=== PATIENT | male | born 1990 | race Caucasian/White ===

== ENCOUNTER 2016-07-09 09:10 | Emergency (ER) | payer SELFPAY ==
[~2016-07-09] VITALS: Wt 64.0 kg
[~2016-07-09 09:10] MED LIST: ACET500C5 PO; ALPR0.25 PO; CYCL-319 PO; IBUP-1542 PO
[2016-07-09] MEDS ORDERED: DIPHENHYDRAMINE 25 MG CAP PO ONE (10:00)
[2016-07-09] MEDS ORDERED: TETRACAINE 0.5% 15 ML OPH BOTH EYES ONE (10:00)
[2016-07-09] MEDS ORDERED: SOD CHLORIDE 0.9% 1,000 ML IV ONE (10:00)
[2016-07-09] MEDS ORDERED: FLUORESCEIN STRIP BOTH EYES ONE (10:00)
[2016-07-09 10:47] LABS: BASOPHILS % 0.4 % (0.0-2.0); EOSINOPHILS # 0.2 10^3/ul (0.0-0.5); EOSINOPHILS % 3.3 % (0.0-7.0); HEMATOCRIT 49.9 % (42.0-52.0); HEMOGLOBIN 17.4 g/dl (14.0-18.0); LYMPHOCYTES # 2.1 10^3/ul (0.8-2.9); LYMPHOCYTES % 28.8 % (15.0-51.0); MEAN CORPUSCULAR HGB CONC 34.9 g/dl (32.0-37.0); MEAN CORPUSCULAR VOLUME 91.9 fl (82.0-101.0); MEAN PLATELET VOLUME 9.6 fl (7.4-10.4); MONOCYTE # 0.4 10^3/ul (0.3-0.9); MONOCYTES % 5.5 % (0.0-11.0); NEUTROPHIL # 4.4 10^3/ul (1.6-7.5); PLATELET COUNT 168 10^3/UL (140-440); RED BLOOD COUNT 5.44 10^6/ul (4.70-6.10); RED CELL DISTRIBUTION WIDTH 12.6 % (11.5-14.5); UNCORRECTED WBC 7.1 10^3/ul (4.8-10.8); WHITE BLOOD COUNT 7.1 10^3/ul (4.8-10.8)
[2016-07-09 10:49] LABS: CONDITION 1
[2016-07-09 10:55] LABS: ALBUMIN 4.5 g/dl (3.3-4.9)
[2016-07-09 10:56] LABS: POTASSIUM 3.6 mmol/L (3.5-5.1)
[2016-07-09 10:58] LABS: ALBUMIN/GLOBULIN RATIO 1.21; BILIRUBIN,INDIRECT 0.5 mg/dl (0-1.1); BILIRUBIN,TOTAL 0.5 mg/dl (0.2-1.3); CREATININE 0.75 mg/dl (0.61-1.24); TOTAL PROTEIN 8.2 g/dl (6.1-8.1)
[2016-07-09 10:59] LABS: CALCIUM 9.7 mg/dl (8.4-10.2)
[2016-07-09] MEDS ORDERED: LIDOCAINE/MYLANTA 40 ML BTL PO ONE (11:30)
--- NOTE | 2016-07-09 12:21 | RADRPT ---
PROCEDURE: CT Brain without contrast. CLINICAL INDICATION: Dizziness, weakness and blurred vision TECHNIQUE: Axial imaging was obtained through the head without intravenous contrast administration u sing a multi-slice CT scanner. Standard CT scan of the head without contrast protocols were perform ed. The CTDIvol is 44.63 mGy and the DLP is 720.23 mGycm. COMPARISON: CT scan of the head 05/20/2015 FINDINGS: The ventricular system and peripheral CSF spaces are unremarkable. Negative for intracranial masses hemorrhages or midline shift. The martin-white matter interfaces unremarkable. The bones and calvar ium are intact. Paranasal sinuses visualized are unremarkable. The mastoids are unremarkable. IMPRESSION: No evidence of intracranial masses hemorrhages or midline shift. RPTAT:AAJJ Physician Brian Date Time Electronically viewed and signed by Physician Brian on 07/09/2016 12:21 BM/
[2016-07-09] MEDS ORDERED: GENT5DRO28 BOTH EYES (12:52)
[2016-07-09] MEDS ORDERED: MECL12.574 PO (12:53)
[2016-07-09 13:07] VITALS: BP 141/72; PULSE 68; RESP 17
--- NOTE | 2016-07-09 15:26 | ERD ---
ER Documentation Chief Complaint Date/Time DATE: 07/09/16 TIME: 15:21 Chief Complaint dizziness and gen weakness for 2 days. no neuro deficit HPI 26-year-old male with no significant past medical history presents the ED complaining of weakness, dizziness, blurred vision, a blood patch on his pillow upon awakening this morning. States that he is unsure where the blood was coming from. States that the symptoms have been occurring for the last 2 days. States that he does not wear any glasses. Reports that his dizziness it is sometimes due to positional movements. Denies any cough, rhinorrhea, fever, chills, normal pain, chest pain, shortness of breath, wheezing, numbness or tingling, eye pain. States that he did not get anything in his eyes however describes the feeling as a burning sensation of his eyes. slps used at this time. ROS All systems reviewed and are negative except as per history of present illness. Medications Home Meds Active Scripts Meclizine Hcl* (Antivert*) 12.5 Mg Tab, 12.5 MG PO Q6H Y for DIZZINESS, #20 TAB Prov:SHAYLA VOGT PA-C 07/09/16 Gentamicin Sulfate* (Gentamicin Sulfate* Ophth) 0.3% - 5 Ml Drops, 2 DROP BOTH EYES Q4, #1 EA Prov:SHAYLA VOGT PA-C 07/09/16 Alprazolam* (Xanax*) 0.25 Mg Tablet, 0.25 MG PO Q8H Y for ANXIETY, #10 TAB Prov:MARILYN AGUIRRE NP 07/17/15 Acetaminophen* (Tylophen*) 500 Mg Capsule, 1 CAP PO Q6 Y for PAIN AND OR ELEVATED TEMP, #30 CAP Prov:DEBI HERNÁNDEZ PA-C 05/20/15 Cyclobenzaprine Hcl* (Cyclobenzaprine Hcl*) 10 Mg Tablet, 10 MG PO TID, #15 TAB Prov:DEBI HERNÁNDEZ PA-C 05/20/15 Ibuprofen* (Motrin*) 600 Mg Tab, 600 MG PO Q6H Y for PAIN AND OR ELEVATED TEMP, #30 Prov:DEBI HERNÁNDEZ PA-C 05/20/15 Allergies Allergies: Coded Allergies: No Known Allergy (Unverified , 05/20/15) PMhx/Soc Medical and Surgical Hx: pt denies Medical Hx History of Surgery: Yes (broken nose repair 3 yrs ago) Anesthesia Reaction: No Hx Neurological Disorder: No Hx Respiratory Disorders: No Hx Cardiac Disorders: No Hx Psychiatric Problems: No Hx Miscellaneous Medical Probl: No Hx Alcohol Use: Yes (1 x per wk) Hx Substance Use: No Hx Tobacco Use: No Smoking Status: Never smoker Physical Exam Vitals Temp 98.4 Pulse 64 SBP 140 DBP 81 Resp 20 O2 Sat 100 Pain Intensity 0 Physical Exam Const: [id number], well-nourished. In no acute distress. Head: Atraumatic, normocephalic Eyes: Normal Conjunctiva without injection. Red reflex appreciated bilaterally. No purulent discharge. PERRLA. EOMI. No periorbital edema. ENT: Normal external ear. Ear canal without erythema. Tympanic membrane pearly martin without effusion or bulging. Nasal canal clear with normal turbinates. Moist oropharynx without tonsillar exudates. Bleeding inflamed anterior maxillary gums with teeth decay. Non-erythematous pharynx. Uvula midline. No drooling. No trismus. Neck: No cervical midline tenderness. Full range of motion. No meningismus. No cervical lymphadenopathy. No JVD. Resp: Clear to auscultation bilaterally. No wheezing, rhonchi, rales, or crackles. No accessory muscle use. No retractions. Cardio: Regular rate and rhythm. No murmurs, rubs or gallops. Abd: Soft, non tender, non distended. Normal bowel sounds. No palpable masses. No rebound tenderness. No guarding. Negative McBurney's Point. Negative Negro's Sign. Skin: Normal skin turgor. No petechiae or rashes Back: No midline tenderness. No CVA tenderness. Ext: No cyanosis, or edema. Distal pulses intact bilaterally. Neur: Awake and alert. Normal gait. Normal coordination. Cranial Nerves II- VII intact. Normal finger to nose. Muscle strength 5/5. Sensation intact. Psych: Normal Mood and Affect Results 24 hrs Laboratory Tests Test 07/09/16 10:20 Alanine Aminotransferase (ALT/SGPT) 28IU/L Albumin 4.5g/dl Albumin/Globulin Ratio 1.21 Alkaline Phosphatase 90IU/L Anion Gap 19 Aspartate Amino Transf (AST/SGOT) 26IU/L Basophils # 0.010^3/ul Basophils % 0.4% Blood Urea Nitrogen 9mg/dl Calcium Level 9.7mg/dl Carbon Dioxide Level 31mmol/L Chloride Level 101mmol/L Creatinine 0.75mg/dl Direct Bilirubin 0.00mg/dl Eosinophils # 0.210^3/ul Eosinophils % 3.3% Globulin 3.70g/dl Glucose Level 96mg/dl Hematocrit 49.9% Hemoglobin 17.4g/dl Indirect Bilirubin 0.5mg/dl Lipase 51U/L Lymphocytes # 2.110^3/ul Lymphocytes % 28.8% Mean Corpuscular Hemoglobin 32.0pg Mean Corpuscular Hemoglobin Concent 34.9g/dl Mean Corpuscular Volume 91.9fl Mean Platelet Volume 9.6fl Monocytes # 0.410^3/ul Monocytes % 5.5% Neutrophils # 4.410^3/ul Neutrophils % 62.0% Nucleated Red Blood Cells # 0.010^3/ul Nucleated Red Blood Cells % 0.0/100WBC Platelet Count 43278^3/UL Potassium Level 3.6mmol/L Red Blood Count 5.4410^6/ul Red Cell Distribution Width 12.6% Sodium Level 147mmol/L Total Bilirubin 0.5mg/dl Total Protein 8.2g/dl White Blood Count 7.110^3/ul Current Medications Medications (Trade) Dose Ordered Sig/Blanca Route PRN Reason Start Time Stop Time Status Last Admin Dose Admin Tetracaine HCl (Tetracaine 0.5% Oph) 1 drop ONCE ONCE BOTH EYES 07/09/16 10:00 07/09/16 10:01 DC 07/09/16 10:08 Diphenhydramine HCl (Benadryl) 25 mg ONCE ONCE PO 07/09/16 10:00 07/09/16 10:01 DC Fluorescein Sodium 1 strip 1 strip ONCE ONCE BOTH EYES 07/09/16 10:00 07/09/16 10:01 DC 07/09/16 10:09 Sodium Chloride (NS) 1,000 ml @ 1,000 mls/hr Q1H ONCE IV 07/09/16 10:00 07/09/16 10:59 DC 07/09/16 10:09 Miscellaneous Medication (Gi Cocktail (2)) 40 ml ONCE ONCE PO 07/09/16 11:30 07/09/16 11:31 DC 07/09/16 11:25 Procedures/MDM This is a 26-year-old male with no significant past medical history presents the ED complaining of weakness, dizziness, blurred vision, a patch of dry blood on his pillow that he found earlier this morning. Patient is afebrile nontoxic appearing. A visual acuity, CT of the brain without contrast, CBC, CMP, lipase , this was ordered to further evaluate patient. The CT of the brain without contrast was discussed with patient at this time. States that he would like to obtain one due to the new in onset of blurred vision associated with his weakness. Patient was treated with normal saline with improvement of his symptoms. Eye Exam w/ Wood's lamp: Visual Acuity: [L 20/50 R 20/50 Bilateral 20/40] Visual Pate: Intact in all four quadrants bilaterally Lac ducts/glands: No swelling Lids w/ evertion: Normal, no foreign body Conj/Kenvil: Clear, negative Beverly's, slight Fluorecin uptake of the left lateral aspect of patient's conjunctiva - conjunctival abrasion Anterior Chamber: Clear CBC: No leukocytosis. No e/o of systemic infection. No e/o anemia. CMP: No e/o severe acidosis, alkalosis, renal failure, diabetic ketoacidosis, liver disease Lipase within normal limits. Urine: No leukocyte esterase, no nitrites, no hematuria. EKG reviewed and interpreted by Dr. Sinclair Rate/Rhythm: [73 bpm, Normal Sinus Rhythm] No ectopy, no ST elevations, normal axis. QRS, ST, T-waves: [No changes consistent w/ acute ischemia] Impression: [No evidence of ischemia or arrhythmia] PROCEDURE: CT Brain without contrast. CLINICAL INDICATION: Dizziness, weakness and blurred vision TECHNIQUE: Axial imaging was obtained through the head without intravenous contrast administration using a multi-slice CT scanner. Standard CT scan of the head without contrast protocols were performed. The CTDIvol is 44.63 mGy and the DLP is 720.23 mGycm. COMPARISON: CT scan of the head 05/20/2015 FINDINGS: The ventricular system and peripheral CSF spaces are unremarkable. Negative for intracranial masses hemorrhages or midline shift. The martin-white matter interfaces unremarkable. The bones and calvarium are intact. Paranasal sinuses visualized are unremarkable. The mastoids are unremarkable. IMPRESSION: No evidence of intracranial masses hemorrhages or midline shift. Since patient reports that it sometimes is positional, dizziness could be due to possible vertigo. A trial course of Meclizine will be given to patient. Low suspicion for bleeding disorders, anemia, hypoglycemia, acute myocardial infarction, pneumothorax, pneumonia, cardiac tamponade, pulmonary embolism, AAA , aortic dissection, Boerhaave's syndrome, cardiac dysrhythmias, meningitis, intracranial bleed, subarachnoid hemorrhage, epidural hematoma, subdural hematoma, seizure, stroke, TIA or other emergent conditions. Patient could have possible conjunctival abrasion and outpatient antibiotics will be given to patient. Low suspicion for ruptured globe, periorbital cellulitis, acute angle glaucoma, retroorbital hemorrhage, or other emergent conditions. Patient instructed to follow up with hot water heater installer within 24 hours. This case was discussed with my supervising physician, Dr. Sinclair who agreed with the management and discharge plan. Discharge medications: Meclizine, Gentamicin Follow up with primary care physician in 1-2 days. Instructed patient to return to the ED sooner for any worsening symptoms. Patient's questions were answered. Patient understood and agreed with discharge plan. Patient discharged stable. Departure Diagnosis: Primary Impression: Multiple complaints Additional Impressions: Dizziness Blurred vision Gingivitis Condition: Stable Patient Instructions: Blurred Vision, Corneal Abrasion, Dizziness, Unk Cause, Gingivitis (Child) Referrals: [facility] Usted se millan hecho un examen mdico de control que le indica que no est en zuleyma condicin que requiera tratamiento urgente en el Departamento de Emergencia. Un estudio ms profundo y el tratamiento de mar condicin pueden esperar sin ningn riesgo hasta que usted sea atendida/o en el consultorio de mar mdico o zuleyma cl selina. Es responsabilidad suya arreglar zuleyma claudia para el seguimiento del jorge. MANEJO DE CONDICIONES NO URGENTES EN EL FUTURO 1) Si usted tiene un mdico de atencin primaria: Usted debera llamar a mar mdico de atencin primaria antes de venir al departamento de emergencia. Despus de las horas de consultorio, mar doctor o mar asociado/a est disponible por telfono. El mdico o enfermero de rudolph en el servicio telefnico puede asesorarle por serena medio para atender el problema, o jorge contrario se puede programar zuleyma claudia. 2) Si usted no tiene un mdico de atencin primaria: Llame al mdico o clnica de referencia que aparece abajo nicole las horas de consultorio para hacer zuleyma claudia para que le vean. CLINICAS: [facility] [phone] [facility] [phone] [address] [facility] [phone] [facility]. [place] [phone] [facility] [place] [phone] [facility] [phone] [address] [facility]. [facility] () Usted se millan hecho un examen mdico de control que le indica que no est en zuleyma condicin que requiera tratamiento urgente en el Departamento de Emergencia. Un estudio ms profundo y el tratamiento de mar condicin pueden esperar sin ningn riesgo hasta que usted sea atendida/o en el consultorio de mar mdico o zuleyma cl selina. Es responsabilidad suya arreglar zuleyma claudia para el seguimiento del jorge. MANEJO DE CONDICIONES NO URGENTES EN EL FUTURO 1) Si usted tiene un mdico de atencin primaria: Usted debera llamar a mar mdico de atencin primaria antes de venir al departamento de emergencia. Despus de las horas de consultorio, mar doctor o mar asociado/a est disponible por telfono. El mdico o enfermero de rudolph en el servicio telefnico puede asesorarle por serena medio para atender el problema, o jorge contrario se puede programar zuleyma claudia. 2) Si usted no tiene un mdico de atencin primaria: Llame al mdico o condado institucions de referencia que aparece abajo nicole las horas de consultorio para hacer zuleyma claudia para que le vean. SI USTED NO PUEDE PAGAR PARA MILES UN MEDICO puede ir a: [facility] [address] [place] [address] [facility] [address] [place] [address] [facility] [address] [place] [address] [facility] [address] [place] [address] [facility] Hours: Mon - Fri 9:00 AM - 5:00 PM [facility] ([facility] walk in clinic) Additional Instructions: Es importante seguir con oftalmlogo (oculista) dentro de 24 horas y mdico de radha en 2-3 womack para la remisin al neurlogo. SHAYLA VOGT PA-C Jul 09, 2016 15:25
== END 2016-07-09 13:07 | disposition home or self-care (01) ==
LOC: FTE 09:10
DX: R42 Dizziness and giddiness (principal); R53.1 Weakness; H53.8 Other visual disturbances; K05.01 Acute gingivitis, non-plaque induced
CPT/HCPCS: 36415; 70450; 80053; 83690; 85025; 93005; 99285; J7030

== ENCOUNTER 2016-08-27 11:32 | Emergency (ER) | payer SELFPAY ==
[~2016-08-27] VITALS: Ht 170.2 cm; Wt 73.1 kg
[~2016-08-27 11:32] MED LIST changes: +GENT5DRO28 BOTH EYES; +MECL12.574 PO
[2016-08-27 11:33] VITALS: Ht 170.2 cm; Wt 73.1 kg
[2016-08-27] MEDS ORDERED: IBUPROFEN 600 MG TAB PO ONE (12:00)
--- NOTE | 2016-08-27 12:19 | RADRPT ---
PROCEDURE: XR Knee. CLINICAL INDICATION: Left knee pain TECHNIQUE: 3 images of the left knee are available for review. COMPARISON: None available FINDINGS: There is no acute fracture. Alignment is normal. Joint spaces are preserved. There is likely a small knee joint effusion. IMPRESSION: 1. No radiographic evidence of acute osseous abnormality of the left knee. RPTAT: UU .Asher Huang MD, MD Date Time Electronically viewed and signed by .Asher Huang MD, MD on 08/27/2016 12:19 .K/
[2016-08-27] MEDS ORDERED: IBUP-1542 PO (12:33)
--- NOTE | 2016-08-27 12:36 | ERD ---
ER Documentation Chief Complaint Date/Time DATE: 08/27/16 TIME: 12:35 Chief Complaint LT KNEE PAIN HPI This 26-year-old male complains of left knee pain after twisting it this morning after an awkward movement. Denies any fall. Denies any weakness or restricted range of motion. He points to the medial joint line as the area of pain. There is no history of bleeding or redness or lacerations. ROS All systems reviewed and are negative except as per history of present illness. Medications Home Meds Active Scripts Ibuprofen* (Motrin*) 600 Mg Tab, 600 MG PO Q6, #20 TAB Prov:TULIO HARLEY MD 08/27/16 Meclizine Hcl* (Antivert*) 12.5 Mg Tab, 12.5 MG PO Q6H Y for DIZZINESS, #20 TAB Prov:SHAYLA VOGT PA-C 07/09/16 Gentamicin Sulfate* (Gentamicin Sulfate* Ophth) 0.3% - 5 Ml Drops, 2 DROP BOTH EYES Q4, #1 EA Prov:SHAYLA VOGT PA-C 07/09/16 Alprazolam* (Xanax*) 0.25 Mg Tablet, 0.25 MG PO Q8H Y for ANXIETY, #10 TAB Prov:MARILYN AGUIRRE NP 07/17/15 Acetaminophen* (Tylophen*) 500 Mg Capsule, 1 CAP PO Q6 Y for PAIN AND OR ELEVATED TEMP, #30 CAP Prov:DEBI HERNÁNDEZ PA-C 05/20/15 Cyclobenzaprine Hcl* (Cyclobenzaprine Hcl*) 10 Mg Tablet, 10 MG PO TID, #15 TAB Prov:DEBI HERNÁNDEZ PA-C 05/20/15 Ibuprofen* (Motrin*) 600 Mg Tab, 600 MG PO Q6H Y for PAIN AND OR ELEVATED TEMP, #30 Prov:DEBI HERNÁNDEZ PA-C 05/20/15 Allergies Allergies: Coded Allergies: No Known Allergy (Unverified , 05/20/15) PMhx/Soc History of Surgery: Yes (broken nose repair 3 yrs ago) Anesthesia Reaction: No Hx Neurological Disorder: No Hx Respiratory Disorders: No Hx Cardiac Disorders: No Hx Psychiatric Problems: No Hx Miscellaneous Medical Probl: No Hx Alcohol Use: Yes (1 x per wk) Hx Substance Use: No Hx Tobacco Use: No Physical Exam Vitals Vital Signs Date Time Temp Pulse Resp B/P Pulse Ox O2 Delivery O2 Flow Rate FiO2 08/27/16 11:33 98.1 89 16 146/82 99 Physical Exam Const: [] Alert, [id number] per Head: Atraumatic Eyes: Normal Conjunctiva ENT: Normal External Ears, Nose and Mouth. Neck: Full range of motion..~ No meningismus. Resp: Clear to auscultation bilaterally Cardio: Regular rate and rhythm, no murmurs Abd: Soft, non tender, non distended. Normal bowel sounds Skin: No petechiae or rashes Back: No midline or flank tenderness Ext: No cyanosis, or edema. There is some tenderness in the left knee medial joint line. There is no significant effusion, deformities, warmth, erythema. There is no calf swelling or Homans sign. Neur: Awake and alert Psych: Normal Mood and Affect Results 24 hrs Current Medications Medications (Trade) Dose Ordered Sig/Blanca Route PRN Reason Start Time Stop Time Status Last Admin Dose Admin Ibuprofen (Motrin) 600 mg ONCE ONCE PO 08/27/16 12:00 08/27/16 12:01 DC 08/27/16 11:54 Procedures/MDM X-ray left knee 3V Interpreted by me: Bones: [No fracture] Joints: [No dislocation] Foreign body: [None]. Impression-normal left knee x-ray She was given ibuprofen 600 mg by mouth for pain. Patient was placed in a left knee Julius bandage and was neurovascular intact after the Julius bandage. Patient has signs and symptoms of left knee sprain with possible meniscal injury. He will be treated with ibuprofen, instructions to follow-up with PCP for possible orthopedic referral for persistent pain. He should return sooner for fevers, redness, new symptoms Departure Diagnosis: Primary Impression: Knee injury Encounter type: initial encounter Laterality: left Qualified Code: S89.92XA - Knee injury, left, initial encounter Condition: Stable Patient Instructions: Knee Sprain Referrals: [facility] Usted se millan hecho un examen mdico de control que le indica que no est en zuleyma condicin que requiera tratamiento urgente en el Departamento de Emergencia. Un estudio ms profundo y el tratamiento de mar condicin pueden esperar sin ningn riesgo hasta que usted sea atendida/o en el consultorio de mar mdico o zuleyma cl selina. Es responsabilidad suya arreglar zuleyma claudia para el seguimiento del jorge. MANEJO DE CONDICIONES NO URGENTES EN EL FUTURO 1) Si usted tiene un mdico de atencin primaria: Usted debera llamar a mar mdico de atencin primaria antes de venir al departamento de emergencia. Despus de las horas de consultorio, mar doctor o mar asociado/a est disponible por telfono. El mdico o enfermero de rudolph en el servicio telefnico puede asesorarle por serena medio para atender el problema, o jorge contrario se puede programar zuleyma claudia. 2) Si usted no tiene un mdico de atencin primaria: Llame al mdico o clnica de referencia que aparece abajo nicole las horas de consultorio para hacer zuleyma claudia para que le vean. CLINICAS: [facility] [phone] [facility] [phone] [address] [facility] [phone] [facility] [phone] [address] [place] [phone] [facility]. [phone] [address] Additional Instructions: X-ray normal. posiblemente ligamentos. Examines normal hoy. Cheque otro vez con mar doctor primario en el proximo garcia or regresa para mas o nueva simptomas. TULIO HARLEY MD Aug 27, 2016 12:36
== END 2016-08-27 13:53 | disposition home or self-care (01) ==
LOC: FTE 11:32
DX: S89.92XA Unspecified injury of left lower leg, initial encounter (principal); X50.1XXA Overexertion from prolonged static or awkward postures, initial encounter; Y92.9 Unspecified place or not applicable
CPT/HCPCS: 73562

== ENCOUNTER 2017-09-07 16:45 | Emergency (ER) | END 2017-09-07 17:19 | disposition left against medical advice (07) ==

== ENCOUNTER 2017-12-27 00:31 | Emergency (ER) | END 2017-12-27 02:20 | disposition home or self-care (01) ==

== ENCOUNTER 2018-01-08 15:12 | Emergency (ER) | END 2018-01-08 17:29 | disposition left against medical advice (07) ==

== ENCOUNTER 2018-01-08 22:17 | Emergency (ER) | END 2018-01-09 00:13 | disposition home or self-care (01) ==

== ENCOUNTER 2018-01-12 12:47 | Emergency (ER) | END 2018-01-12 18:54 | disposition home or self-care (01) ==

== ENCOUNTER 2018-01-19 08:05 | Emergency (ER) | END 2018-01-19 10:26 | disposition home or self-care (01) ==

== ENCOUNTER 2018-01-28 11:06 | Emergency (ER) | END 2018-01-28 13:55 | disposition home or self-care (01) ==

== ENCOUNTER 2018-02-03 21:52 | Emergency (ER) | END 2018-02-04 00:41 | disposition home or self-care (01) ==